=== PATIENT | male | born 1950 | race Caucasian/White ===

== ENCOUNTER → 2018-10-25 08:32 | Outpatient (CLI) | payer SELFPAY, MEDICARE ==
[2018-10-18 09:42] LABS: Red Blood Cells-Urine 0 SEEN /hpf (0-5); White Blood Cells 0 SEEN /hpf (0-5)
[2018-10-18 10:16] LABS: Color, Urine Yellow (Yellow); Glucose, Dipstick Normal (Normal); Ketone-Dipstick Negative (Negative); Leukocyte Esterase-Dipstick Negative /ul (Negative); Nitrite-Dipstick Negative (Negative); Occult Blood-Urine Negative /ul (Negative); Protein-Dipstick Negative (Negative); Urine Bilirubin Dipstick Negative (Negative); Urine Clarity Clear (Clear); Urine Urobilinogen Normal (Normal)
[2018-10-18 10:17] LABS: Hemoglobin 14.8 g/dl (13.0-16.5); Mean Corp Hgb Conc 34.4 g/gl (32-36); Mean Corpuscular Hgb 32.4 pg (27.0-32.0); Mean Corpuscular Volume 94.1 fL (80-94); Mean Platelet Vol. 10.8 fl (6.2-12.0); Platelet Count 141 K/mm3 (150-450); RBC Distribution Width CV 12.3 % (11.6-14.6); RBC Distribution Width SD 41.9 fl (35.1-43.9); Red Blood Count 4.57 M/mm3 (4.6-6.2); White Blood Count 4.2 K/mm3 (4.4-11.0)
[2018-10-18 10:18] LABS: Scan Indicated on CBC? Y/N NO
[2018-10-18 10:24] LABS: Bacteria RARE /hpf (None Seen); Mucous, Urine RARE /hpf (<or=2+); Squamous Epithelial Cells - UA 0-5 SEEN /hpf (0-5)
[2018-10-18 10:43] LABS: Vitamin D,25 Hydroxy 20.1 ng/mL (29.95-100.01)
[2018-10-18 10:48] LABS: Hemoglobin A1c 5.2 % (4.2-6.3)
[2018-10-18 10:50] LABS: ALB/GLOB Ratio 1.2 RATIO (0.9-2.4); AST(SGOT) 17 U/L (15-37); Alanine Aminotransfer ALT/SGPT 19 U/L (16-61); Albumin, Serum 3.6 g/dL (3.2-5.0); Alkaline Phosphatase 67 U/L (45-117); Anion Gap 4 (5-15); BUN 14 mg/dL (7-18); BUN/Creat Ratio 15.5 RATIO (10-20); Calcium,Total 8.6 mg/dL (8.5-10.1); Chloride 106 mmol/L (98-107); Cholesterol 133 mg/dL (200); Creatinine, Serum 0.91 mg/dL (0.70-1.30); EST Glomerular Filtration Rate 89 mL/min (>60); Est Glom Filt Rate - Afr Amer 108 mL/min (>60); Glucose 91 mg/dL (74-106); High Density Lipoprotein 55 mg/dL; PSA,Total - Annual Screen 3.58 ng/mL (0.00-4.00); Protein, Total 6.6 g/dL (6.4-8.2); Sodium Level 141 mmol/L (136-145); Thyroid Stim Hormone (TSH) 2.06 uIU/mL (0.358-3.74); Triglycerides 69 mg/dL; Very Low Density Lipoprotein 14 mg/dL (5-40)
[2018-10-18 11:31] LABS: Homocysteine 8.9 umol/L (3.2-10.7)
--- NOTE | 2018-10-25 08:30 | EKG12_ITS ---
Test Reason : EXEC PHYS Blood Pressure : / mmHG Vent. Rate : 074 BPM Atrial Rate : 074 BPM P-R Int : 160 ms QRS Dur : 078 ms QT Int : 376 ms P-R-T Axes : 068 059 075 degrees QTc Int : 417 ms Normal sinus rhythm Normal ECG Confirmed by YEHUDA PHAN, SEGUNDO ([id number]), manager editorial JAYDA JOHNSON ([id number]) on 10/29/2018 1:45:31 PM Referred By: Aurora Petty Confirmed By:SEGUNDO BLACKMAN MD
--- NOTE | 2018-10-25 20:09 | BFS_ITS ---
Reason For Study: Screening Carotid Duplex Ultrasound Abdominal Aorta The right maximum ICA velocity is 59.8/14.5 cm/s. The maximal outside diameter of the proximal aorta The left maximum ICA velocity is 73/31.5 cm/s. measures 1.76 x 1.71 cm in the cross-sectional The right ECA velocity is less than 125 cm/s. axis. The left ECA velocity is less than 125 cm/s. The maximal outside diameter of the proximal aorta There is insignificant plaque formation noted on measures 1.75 cm in the longitudinal axis. the right side. There is insignificant plaque formation noted on the left side. Interpretation Summary Normal carotid artery screening (0 to 15% narrowing). Normal aortic ultrasound exam. Performed By: Padma Jeff RVT
== END ==
PROVIDERS: Family Provider Family Medicine; PCP Family Medicine; Referring Provider Internal Medicine; Visit Provider Internal Medicine
DX: Z00.00 Encounter for general adult medical examination without abnormal findings (principal)
CPT/HCPCS: 36415; 80053; 80061; 81001; 82306; 83036; 83090; 84153; 84443; 85027; 93005; G0103